=== PATIENT | female | born 1985 | race Hispanic/Latino ===

== ENCOUNTER 2017-01-26 08:56 | Outpatient (CLI) | payer MEDICARE ==
--- NOTE | 2017-01-26 10:49 | Mammography Report ---
Bilateral diagnostic mammogram and sonogram right and left breas: No previous studies available. CAD study utilized. History: Palpable right breast mass. Findings: Heterogeneous breast parenchyma bilaterally. Suspicion for chest density lower left breast and upper right breast. No microcalcification. Normal exam. Sonographic examination of right upper breast in the left inner breast there is no definite cystic or solid mass. Impression: Benign findings. Annual followup with mammogram recommended. BI-RADS CATEGORY: 2 = Benign ACR BI-RADS MAMMOGRAPHIC CODES: 0 = Needs additional imaging evaluation; 1 = Negative; 2 = Benign; 3 = Probably benign; 4 = Suspicious; 5 = Malignant; 6 = Known biopsy-proven malignancy COMMENT: 1. Dense breast tissue, i.e., adenosis, fibrocystic changes, etc., may obscure an underlying neoplasm. 2. Approximately 10% of cancers are not detected with mammography. 3. A negative mammography report should not delay biopsy if a clinically suspicious mass is present. COMMENT: Patient follow-up letters are generated in [employer].
== END 2017-01-26 08:57 | disposition home or self-care (01) ==
LOC: MAMMO 08:56 → SPVWC 08:56 → MAMMO 08:57
PROVIDERS: ATTEND Student in an Organized Health Care Education/Training Program
DX: N63 Unspecified lump in breast (principal)
CPT/HCPCS: 76642; G0204; 77066

== ENCOUNTER 2017-02-26 09:51 | Outpatient (CLI) | payer OTHER ==
--- NOTE | 2017-02-26 11:02 | Cat Scan Report ---
CT CHEST WITH CONTRAST: HISTORY: Right breast mass on ultrasound. TECHNIQUE: Helical CT following IV contrast. Sagittal and coronal reformatted images. FINDINGS: Heart size is normal. There is no evidence of adenopathy within the mediastinum. Pulmonary vivi are free of any mass and the lungs are clear of infiltrates. The pleura is unremarkable. No masses involve the chest wall. The breast tissue is grossly normal bilaterally on CT. If further evaluation is needed consider breast MRI with contrast. No abnormalities are noted within the upper abdomen. The adrenal glands are normal. IMPRESSION: Unremarkable CT scan of the chest.
== END 2017-02-26 09:52 | disposition home or self-care (01) ==
LOC: CT 09:51
PROVIDERS: ATTEND Student in an Organized Health Care Education/Training Program
DX: G40.89 Other seizures (principal); R92.8 Other abnormal and inconclusive findings on diagnostic imaging of breast; N63 Unspecified lump in breast
CPT/HCPCS: 71260; Q9967